=== PATIENT | female | born 1995 | race Two or more races ===

== ENCOUNTER 2024-09-12 17:42 | Inpatient (IN) | payer MEDICAID ==
[~2024-09-12] VITALS: Ht 157.5 cm; Wt 81.6 kg
[2024-09-12] MEDS: LACTATED RINGER'S 1,000 ML IV SCH (02:00)
--- NOTE | 2024-09-12 18:06 | LDN2 ---
Labor and Delivery Note Date 09/12/24 Age 29 3 Para 2 AB Ectopic x 1 EDC 09/26/24 EGA 37+ weeks Diagnosis Active labor, 10cm on arrival care at [facility] Vaginal Delivery: VTX Vacuum Assisted: No Placenta: Spontaneous Sex: Male Weight Pending Apgars 8/9 Nuchal Cord Transected: No Amniotic Fluid: Meconium Stained, Thin Anesthesia None Episiotomy: No Extension: No Repaired with N/A EBL 50 mL Complications None Comments/Significant [facility] arrival by ambulance Completely dilated on arrival, 10cm AROM 1+ thin mec fluid Loose NUCHAL cord x 1 Patient w/ no anesthesia GBS unknown. URI DAWSON DO Sep 12, 2024 18:06
--- NOTE | 2024-09-12 18:09 | DVHHP2 ---
OB CC & HPI Date Date of Admission: Sep 12, 2024 Patient Identification: : 3 Para: Ectopic 1 EGA: 37.4 wk Chief Complaints: Reason for admission: active labor History of Present Complaints Ambulance arrival, 10cm on admission Labor started 2 hr ago Denies PROM Denies any complications, PEREZ patient Past Medical History Cardiac: No pertinent Hx Pulmonary: No pertinent Hx Central Nervous System: No pertinent Hx GI: No pertinent Hx Hemotology/Oncology: No pertinent Hx Hepatobiliary: No pertinent Hx Psychiatric: Anxiety, Depression Musculoskeletal: No pertinent Hx Rheumotologic: No pertinent Hx Infectious Disease: No peritnent Hx ENT: No pertinent Hx Renal/: No pertinent Hx Endocrine: No pertinent Hx Dermatology: No pertinent Hx Past Surgical History: Other (laparoscopy for ectopic ) OB History OB History Care: [facility] Ultrasounds: Other (Unknown) Obstetrical Complications: None Medical Complications: None Current Medications Current Medications Medications (Trade) Dose Ordered Sig/Geovanna Route PRN Reason Start Time Stop Time Status Last Admin Lactated Ringer's 1,000 ml @ 125 mls/hr Q8H IV 09/12/24 18:00 UNV Witch Tiffany (Tucks) 1 pad PRN PRN TOP PERINEAL AREA DISCOMFORT 09/12/24 18:00 UNV Sodium Lauryl Sulfate (Phisoderm) 240 ml PRN PRN TOP PERINEAL AREA DISCOMFORT 09/12/24 18:00 UNV Benzocaine (Dermoplast) 1 applic PRN PRN TOP PERINEAL AREA DISCOMFORT 09/12/24 18:00 UNV Lidocaine HCl (Xylocaine) 20 ml ONCE PRN IJ PERINEAL AREA DISCOMFORT 09/12/24 18:00 UNV Family & Social History Family/Social History Blood Type: Unknown Rubella: unknown RPR/VDRL: Unknown GBS Status: Unknown HBsAG: Unknown Review of Systems Constitutional: No symptom reported Ears, Nose, & Throat: No symptom reported Eyes: No symptom reported Pulmonary/Respiratory: No symptom reported Cardiovascular: No symptom reported Gastrointestinal: No symptom reported Genitourinary: No symptom reported Musculoskeletal: No symptom reported Skin: No symptom reported Psychiatric: No symptom reported Endocrine: No symptom reported Hemotologic/Lymphatic: No symptom reported OB Admission Exam Physical Exam HEENT: TMs Normal, Fontanelles Normal, Nasal Mucosa Normal, Eyes non-injected, Oropharynx Normal, PERRLA, Moist Membranes, EOMI Heart: Rhythm Normal Lungs: Clear Abdomen: Non tender Extremities: Normal Reflexes: Normal Cervical Dilatation: 10cm Effacement: 100% Station: +1 Membranes: Intact Amniotic Fluid: Thick Meconium (AROM) Heart Rate: 140's Accelerations: No Accelerations Decelerations: No Decelerations Short Term Variability: Present Filament Welder Variability: Average (6-25) Contractions on Admission: < 5 Minutes Apart Intensity: Firm OB Plan Plan Admitting Diagnosis: Early Term IUP 37+ weeks, Active Labor GBS unknown Plan: Expectant Management Other Plan: Admit for immanent vaginal delivery Consent obtained URI DAWSON DO Sep 12, 2024 18:09
[2024-09-12] MEDS ORDERED: ONDANSETRON ODT 4 MG TAB PO PRN (18:30)
[2024-09-12] MEDS: IBUPROFEN 600 MG TAB PO PRN (18:47)
[2024-09-12] MEDS: DERMOPLAST 60ML BOTTLE TOP PRN (18:48)
[2024-09-12] MEDS: WITCH HAZEL-GLYCERIN PAD TOP PRN (18:48)
[2024-09-12] MEDS: PHISODERM TOP SOLN 240ML BTL TOP PRN (18:48)
[2024-09-12] MEDS: LIDOCAINE 2%HCL (LOCAL ANESTH.) INJ 20ML MDV IJ PRN (18:51)
[2024-09-12] MEDS: ACETAMINOPHEN 325 MG TAB PO PRN (18:51)
[2024-09-12] MEDS: LACT. RINGERS/OXYTOCIN 20UNITS 500 ML IV ONE ×2 (19:08→19:09)
[2024-09-12 19:19] LABS: Basophils # (auto) 0 10 ^3/uL (0-0.2); Basophils % (auto) 0.2 % (0.0-2.0); Eosinophils # (auto) 0 10 ^3/uL (0-0.8); Hematocrit 40.4 % (36.0-46.0); Hemoglobin 13.4 g/dL (12.2-16.2); Lymphocytes # (auto) 0.9 10 ^3/uL (0.4-5.4); Lymphocytes % (auto) 6.8 % (10.0-50.0); Mean Corpuscular Hemoglobin 28.5 pg (28.0-32.0); Mean Corpuscular Hgb Conc. 33.2 g/dL (32.0-36.0); Mean Corpuscular Volume 85.6 fL (80.0-100.0); Monocytes # (auto) 0.6 10 ^3/uL (0-1.3); Monocytes % (auto) 4.7 % (0.0-12.0); Neutrophils # (auto) 11.8 10 ^3/uL (1.6-8.6); Neutrophils % (auto) 88.3 % (37.0-80.0); Platelet Count (auto) 143 10^3/uL (140-450); Red Blood Cells 4.72 10^6/uL (4.0-5.20); Red Cell Distribution Width 16.1 % (11.8-14.3); White Blood Cell 13.3 10^3/uL (4.4-10.8)
[2024-09-12 19:36] LABS: INR 0.94 (0.9-1.15)
[2024-09-12 19:42] LABS: Urine Amorphous Crystal FEW /hpf (None Seen); Urine Bacteria FEW /hpf (None Seen); Urine Blood Negative /uL (Negative); Urine Clarity Turbid (Clear); Urine Color Light-Yellow (Yellow); Urine Mucus FEW (None Seen); Urine Protein, UAD Negative (Negative); Urine Specific Gravity 1.016 (1.001-1.035); Urine Squamous Epithelial Cell FEW /hpf (<5); Urine Urobilinogen Normal (Negative); Urine WBC 2 /hpf (0 - 5)
[2024-09-12 19:47] LABS: Albumin 3.7 g/dL (3.2-4.8); Anion Gap 11 (5-15); Calcium 9.9 mg/dL (8.7-10.4); Carbon Dioxide 21 mmol/L (20-31); Potassium 3.5 mmol/L (3.5-5.1); Sodium 139 mmol/L (136-145)
[2024-09-12 19:48] LABS: Total Protein 6.2 g/dL (5.7-8.2)
[2024-09-12 19:50] LABS: Alanine Aminotransferase 9 U/L (7-40); Alkaline Phosphatase 157 U/L (46-116); Aspartate Aminotransferase 11 U/L (13-40); Bilirubin, Total 0.2 mg/dL (0.2-1.0); Blood Urea Nitrogen 8 mg/dL (9-23); Chloride 107 mmol/L (98-107); Glucose 111 mg/dL (74-106)
[2024-09-12 20:02] LABS: Benzodiazephine Screen, Urine Neg (NEGATIVE)
[2024-09-12 20:34] LABS: Amphetamine Screen, Urine Neg (NEGATIVE); Barbiturate Scree,Urine Neg (NEGATIVE); Cannabinoid Screen, Urine Neg (NEGATIVE); Cocaine Screen, Urine Neg (NEGATIVE); Opiate Scree,Urine Neg (NEGATIVE); Phencyclidine Screen, Urine Neg (NEGATIVE)
[2024-09-12 23:00] VITALS: BP 115/59; PULSE 82; RESP 18; TEMP 98.8; O2SAT 96
[2024-09-13 03:00] VITALS: BP 118/62; PULSE 75; RESP 18; TEMP 98.2; O2SAT 96
--- NOTE | 2024-09-13 06:06 | DVHPN2 ---
Progress Note Date Seen: Sep 13, 2024 Subjective PPD#1 s/p , doing well Lochia mild. Pain controlled. Denies Fever/Chills vital signs Vital Sign Date Time Temp Pulse Resp B/P (MAP) Pulse Ox O2 Delivery O2 Flow Rate FiO2 09/13/24 03:00 98.2 75 18 118/62 (80) 96 98.2 Total Intake and Output 09/12/24 09/12/24 09/13/24 15:00 23:00 07:00 Output Total 200 ml 200 ml Balance -200 ml -200 ml medications Current Medications Medications Dose Ordered Sig/Geovanna Route Start Time Stop Time Status Last Admin Dose Admin Lactated Ringer's 1,000 ml @ 125 mls/hr Q8H IV 09/12/24 18:00 Eliud Allen 1 pad PRN PRN TOP 09/12/24 18:00 09/12/24 18:48 1 PAD Sodium Lauryl Sulfate 240 ml PRN PRN TOP 09/12/24 18:00 09/12/24 18:48 240 ML Benzocaine 1 applic PRN PRN TOP 09/12/24 18:00 09/12/24 18:48 1 APPLIC Lidocaine HCl 20 ml ONCE PRN IJ 09/12/24 18:00 09/12/24 18:51 20 ML Ibuprofen 600 mg Q6HP PRN PO 09/12/24 18:30 09/12/24 18:47 600 MG Acetaminophen 650 mg Q4HP PRN PO 09/12/24 18:30 09/13/24 02:22 650 MG Ondansetron HCl 4 mg Q4HPRN PRN PO 09/12/24 18:30 laboratory and microbiology Laboratory Tests 09/12/24 18:59 Test 09/12/24 18:59 Range/Units Serum Glucose 111 H 74-106 mg/dL Objective O: AFVSS Chest: heart and lung sounds normal. Abd soft, non-tender, fundus firm, BS, no rebound or guarding, Ext Neg Homans, Non-tender, edema Lochia - minimal Labs Pending Assessment/Plan PPD#1 s/p at Term, doing well Plan: Continue supportive care Advance orders D/C planning Plan discussed with: Patient URI DAWSON Sep 13, 2024 06:06
[2024-09-13 07:15] VITALS: BP 119/65; PULSE 82; RESP 16; TEMP 98; O2SAT 96
[2024-09-13 11:05] VITALS: BP 121/75; PULSE 65; RESP 18; TEMP 97.8; O2SAT 96
--- NOTE | 2024-09-13 14:01 | DVHPN2 ---
Chief Complaints Patient reports: No new complaints Nursing reports: No new complaints Objective Vitals Vital Signs Date Time Temp Pulse Resp B/P (MAP) Pulse Ox O2 Delivery O2 Flow Rate FiO2 09/13/24 07:15 98.0 82 16 119/65 (83) 96 98.0 09/13/24 07:15 Room Air Medications Current Medications Medications (Trade) Dose Ordered Sig/Geovanna Route PRN Reason Start Time Stop Time Status Last Admin Acetaminophen (Tylenol Tablet) 650 mg Q4HP PRN PO MILD PAIN (1-3 PAIN SCALE) 09/12/24 18:30 09/13/24 11:17 Benzocaine (Dermoplast) 1 applic PRN PRN TOP PERINEAL AREA DISCOMFORT 09/12/24 18:00 09/12/24 18:48 Ibuprofen (Motrin Tablet) 600 mg Q6HP PRN PO MODERATE PAIN (4-6 PAIN SCALE) 09/12/24 18:30 09/12/24 18:47 Lidocaine HCl (Xylocaine) 20 ml ONCE PRN IJ PERINEAL AREA DISCOMFORT 09/12/24 18:00 09/12/24 18:51 Ondansetron HCl (Zofran Po) 4 mg Q4HPRN PRN PO NAUSEA / VOMITING 09/12/24 18:30 Sodium Lauryl Sulfate (Phisoderm) 240 ml PRN PRN TOP PERINEAL AREA DISCOMFORT 09/12/24 18:00 09/12/24 18:48 Witch Tiffany (Tucks) 1 pad PRN PRN TOP PERINEAL AREA DISCOMFORT 09/12/24 18:00 09/12/24 18:48 General: Normal Lungs: Normal Cardiovascular: Normal Abdominal: Soft Extremities: Normal Studies Laboratory Tests 09/12/24 18:59 Test 09/12/24 18:59 Range/Units Serum Glucose 111 H 74-106 mg/dL Ass/Plan Assessment s/p Plan dc home fu in [place] PREMA DASH DO Sep 13, 2024 14:01
--- NOTE | 2024-09-13 14:02 | DVHDS2 ---
Obstetrics Discharge Summary Obstetrics Discharge Summary Date of Admission: Sep 12, 2024 Date of Discharge: Sep 13, 2024 Reason For Admission: Onset of Labor Procedures: NST Intrapartum Procedures: Spontaneous vaginal deliv Procedures: None Operative Complicat: None Discharge Diagnosis: Delivery Discharge Information: Activity (Other), Diet (Routine), Medications (None), Instructions (Routine), Discharge to (Home), Discarge date (09-13) PREMA DASH DO Sep 13, 2024 14:02
[2024-09-13 15:30] VITALS: BP 116/68; PULSE 65; RESP 18; TEMP 97.8; O2SAT 97
[2024-09-13 20:27] VITALS: BP 119/82; PULSE 78; RESP 16; TEMP 98.5; O2SAT 99
[2024-09-14 04:06] LABS: Rubella Antibodies, IgG 2.05 index (Immune >0.99)
[2024-09-14 08:07] LABS: RPR Non Reactive (Non Reactive)
== END 2024-09-13 20:37 | disposition home or self-care (01) | DRG 560 ==
LOC: LDRP 17:42
PROVIDERS: ADMIT Obstetrics & Gynecology; ATTEND Obstetrics & Gynecology
PROC: 10E0XZZ Delivery of Products of Conception, External Approach (ICD-10-PCS; principal; 2024-09-12)
PROC: 10907ZC Drainage of Amniotic Fluid, Therapeutic from Products of Conception, Via Natural or Artificial Opening (ICD-10-PCS; 2024-09-12)
DX: O77.0 Labor and delivery complicated by meconium in amniotic fluid (principal); Z37.0 Single live birth; F32.A Depression, unspecified; O69.81X0 Labor and delivery complicated by cord around neck, without compression, not applicable or unspecified; Z3A.37 37 weeks gestation of pregnancy; F41.9 Anxiety disorder, unspecified
CPT/HCPCS: 36415; 59409; 80053; 80307; 81001; 85025; 85610; 85730; 86592; 86703; 86762; 86803; 86850; 86900; 86901; 87340; 94760; 96360; 96361; G0378